=== PATIENT | female | born 1965 | race Caucasian/White ===

== ENCOUNTER 2017-04-06 11:00 | Emergency (ER) | payer OTHER ==
[2017-04-06] MEDS ORDERED: ATIVAN INJ 2 MG VIAL IVP ONE (11:07)
[2017-04-06] MEDS ORDERED: CEREBYX INJ ONE (11:18)
[2017-04-06] MEDS ORDERED: NS 1000 ML ONE (11:20)
[2017-04-06] MEDS ORDERED: CEREBYX INJ IVP ONE (11:21)
[2017-04-06 11:24] VITALS: BMI 35.5
--- NOTE | 2017-04-06 11:26 | DR.SEIZA ---
HPI - Time Seen Time seen: 11:00 - Complaints Chief Complaint Doctors Comments: Patient presented to the ED via EMS with complaint of seizure. She had a tonic clonic seizure duration of less than one minute. She received versed x2.Upon arrival patient was post-ictal. Patient had another seizure duration of three minutes, tonic/clonic , received 1mg lorazepam and seizure stopped. While awaiting for information for registering patient she had another seizure and she was started on cerebyx 1gm. Family member reports that seizures started 1-2 years ago, no regular physician, last seizure one month ago. PMH - PMH Past Medical History: Hypertension, Seizures Past Surgical History: No - Family History Family Medical History: Diabetes Mellitus, Heart Failure, Hypertension - Social History Do you use any recreational Drugs:: No ROS - Review of Systems Eyes: No Symptoms Reported ENTM: No Symptoms Reported Respiratoy: No Symptoms Reported, Other (post-ictal) Cardiovascular: No Symptoms Reported Gastrointestinal/Abdominal: No Symptoms Reported Genitourinary: No Symptoms Reported Neurological: Seizure Musculoskeletal: No Symptoms Reported Integumentary: No Symptoms Reported Hematologic/Lymphatic: No Symptoms Reported Endocrine: No Symptoms Reported Psychiatric: No Symptoms Reported All Other Systems: Reviewed and Negative PE - Vital Signs Vitals: Pulse Rate [Right Radial] 87 Pulse Rate 118 Respiratory Rate 26 Blood Pressure [Right Arm] 175/78 Blood Pressure 253/124 O2 Sat by Pulse Oximetry 96 - Head Head Exam: Normal Inspection - Eyes Eye exam: Normal Appearance - ENT ENT Exam: Normal Exam Mouth Exam: Normal Inspection - Neck Neck Exam: Normal Inspection, Full ROM - Chest Chest Inspection: Normal Inspection - Respiratory Respiratory Exam: Normal Lung Sounds Bilat Respiratory Exam: Bilateral Clear to Auscultation - Cardiovascular Cardiovascular Exam: Regular Rate, Normal Rhythm - Abdominal Exam Abdominal Exam: Normal Inspection Abdominal Tenderness: negative: RUQ, RLQ, LUQ, LLQ, Epigastrium, Suprapubic, Diffuse, Mild, Moderate, Severe, Other - Extremities Extremities Exam: Normal Inspection - Back Back Exam: Normal Inspection, Full ROM - Neurologic Neurological Exam: Alert, Oriented X3, CN II-XII Intact - Psychiatric Psychiatric Exam: Depressed - Skin Skin Exam: Warm, Dry, Intact ROR - Labs Reviewed Result Diagrams: 04/06/17 11:37 04/06/17 11:37 Laboratory: WBC 11.4 X10^3/uL (3.6-10.0) H 04/06/17 11:37 RBC 5.25 X10^6/uL (3.5-5.4) 04/06/17 11:37 Hgb 15.9 g/dL (12.0-16.0) 04/06/17 11:37 Hct 47.3 % (36.0-47.0) H 04/06/17 11:37 MCV 90.1 fL (80.0-100.0) 04/06/17 11:37 MCH 30.3 pg (27.0-34.0) 04/06/17 11:37 MCHC 33.6 g/dL (33.0-35.0) 04/06/17 11:37 RDW 13.8 % (11.6-16.5) 04/06/17 11:37 Plt Count 238 X10^3/uL (150.0-450.0) 04/06/17 11:37 MPV 8.8 fL (7.4-11.0) 04/06/17 11:37 Neut % 69.4 % (42.0-75.0) 04/06/17 11:37 Lymph % 23.5 % (21.0-51.0) 04/06/17 11:37 [place] % 3.8 % (0.0-13.0) 04/06/17 11:37 Eos % 2.6 % (0.9-2.9) 04/06/17 11:37 Baso % 0.7 % (0.2-1.0) 04/06/17 11:37 Neut # 7.9 x10^3/uL (2.2-4.8) H 04/06/17 11:37 Lymph # 2.7 X10^3/uL (1.3-2.9) 04/06/17 11:37 [place] # 0.4 x10^3/uL (0.3-0.8) 04/06/17 11:37 Eos # 0.3 x10^3/uL (0.0-0.2) H 04/06/17 11:37 Baso # 0.1 X10^3/uL (0.0-0.1) 04/06/17 11:37 Absolute Nucleated RBC 0.1 /100WBC 04/06/17 11:37 Sodium 142 mmol/L (136-145) 04/06/17 11:37 Corrected Sodium 144 mmol/L (136-145) 04/06/17 11:37 Potassium 3.9 mmol/L (3.5-5.1) 04/06/17 11:37 Chloride 104 mmol/L (98-107) 04/06/17 11:37 Carbon Dioxide 29.0 mmol/L (21-32) 04/06/17 11:37 BUN 11 mg/dL (7-18) 04/06/17 11:37 Creatinine 0.81 mg/dL (0.55-1.02) 04/06/17 11:37 Est GFR (MDRD) Af Amer > 60 (>60) 04/06/17 11:37 Est GFR (MDRD) Non-Af > 60 (>60) 04/06/17 11:37 Glucose 199 mg/dL (65-99) H 04/06/17 11:37 Calcium 8.1 mg/dL (8.5-10.1) L 04/06/17 11:37 Corrected Calcium TNP 04/06/17 11:37 Total Bilirubin 0.20 mg/dL (0.2-1.0) 04/06/17 11:37 AST 18 Units/L (15-37) 04/06/17 11:37 ALT 24 Units/L (12-78) 04/06/17 11:37 Alkaline Phosphatase 112 Units/L (46-116) 04/06/17 11:37 Total Protein 8.0 g/dL (6.4-8.2) 04/06/17 11:37 Albumin 3.8 g/dL (3.4-5.0) 04/06/17 11:37 Globulin 4.2 g/dL (2.5-4.5) 04/06/17 11:37 Albumin/Globulin Ratio 0.9 Ratio (1.1-2.1) L 04/06/17 11:37 Specimen Type Catherized urine 04/06/17 13:14 Urine Color Straw (YELLOW) 04/06/17 13:14 Urine Appearance Clear (CLEAR) 04/06/17 13:14 Urine pH 6.5 (5.0 - 8.0) 04/06/17 13:14 Ur Specific [place] 1.015 (1.000-1.030) 04/06/17 13:14 Urine Protein 3+ (NEGATIVE) 04/06/17 13:14 Urine Glucose (UA) 4+ (NEGATIVE) 04/06/17 13:14 Urine Ketones Negative (NEGATIVE) 04/06/17 13:14 Urine Occult Blood 2+ (NEGATIVE) 04/06/17 13:14 Urine Nitrite Negative (NEGATIVE) 04/06/17 13:14 Urine Bilirubin Negative (NEGATIVE) 04/06/17 13:14 Urine Urobilinogen Normal (NORMAL) 04/06/17 13:14 Ur Leukocyte Esterase Negative (NEGATIVE) 04/06/17 13:14 Urine RBC None seen /HPF (NEGATIVE) 04/06/17 13:14 Urine WBC None seen /HPF (NEGATIVE) 04/06/17 13:14 Ur Squamous Epith Cells Rare /HPF (NEGATIVE) 04/06/17 13:14 Amorphous Sediment Trace /HPF (NEGATIVE) 04/06/17 13:14 Urine Bacteria Negative /HPF (NEGATIVE) 04/06/17 13:14 Ur Culture Indicated? No/not indicated 04/06/17 13:14 Phenytoin 10.8 ug/mL (10-20) 04/06/17 15:57 - XRAY XRAY Interpreted by: Radiologist (Brain Ct: No acute abnormality) - Diagnosis Discharge Problem: Seizure disorder - Discharge Plan Condition: Stable - Follow ups/Referrals Follow ups/Referrals: [facility],None [Primary Care Provider] - 3 days - Instructions
[2017-04-06 11:50] LABS: BASOPHILS # (AUTO) 0.1 X10^3/uL (0.0-0.1); BASOPHILS % (AUTO) 0.7 % (0.2-1.0); EOSINOPHILS # (AUTO) 0.3 x10^3/uL (0.0-0.2); EOSINOPHILS % (AUTO) 2.6 % (0.9-2.9); HEMATOCRIT 47.3 % (36.0-47.0); HEMOGLOBIN 15.9 g/dL (12.0-16.0); LYMPHOCYTES # (AUTO) 2.7 X10^3/uL (1.3-2.9); LYMPHOCYTES % (AUTO) 23.5 % (21.0-51.0); MEAN CORPUSCULAR HEMOGLOBIN 30.3 pg (27.0-34.0); MEAN CORPUSCULAR HGB CONC 33.6 g/dL (33.0-35.0); MEAN CORPUSCULAR VOLUME 90.1 fL (80.0-100.0); MEAN PLATELET VOLUME 8.8 fL (7.4-11.0); MONOCYTES # (AUTO) 0.4 x10^3/uL (0.3-0.8); MONOCYTES % (AUTO) 3.8 % (0.0-13.0); NEUTROPHILS # (AUTO) 7.9 x10^3/uL (2.2-4.8); NEUTROPHILS % (AUTO) 69.4 % (42.0-75.0); PLATELET COUNT 238 X10^3/uL (150.0-450.0); RED BLOOD COUNT 5.25 X10^6/uL (3.5-5.4); RED CELL DISTRIBUTION WIDTH 13.8 % (11.6-16.5); WHITE BLOOD COUNT 11.4 X10^3/uL (3.6-10.0)
[2017-04-06 12:05] LABS: ALANINE AMINOTRANSFERASE 24 Units/L (12-78); ALBUMIN 3.8 g/dL (3.4-5.0); ALKALINE PHOSPHATASE 112 Units/L (46-116); ASPARTATE AMINO TRANSFERASE 18 Units/L (15-37); BLOOD UREA NITROGEN 11 mg/dL (7-18); CALCIUM 8.1 mg/dL (8.5-10.1); CHLORIDE 104 mmol/L (98-107); COR NA(FOR HYPERGLY) 144 mmol/L (136-145); CREATININE 0.81 mg/dL (0.55-1.02); SODIUM 142 mmol/L (136-145); eGFR BLACK RACES > 60 (>60); eGFR NON BLACK RACES > 60 (>60)
--- NOTE | 2017-04-06 13:13 | CT ---
HISTORY: Seizures Study: CT brain without contrast Comparison: February 11, 2015 Technique: Multiple axial images of the brain were obtained from the skull base to the vertex without administra tion of IV contrast. Sagittal and coronal reformations were provided. Findings: No acute intraparenchymal hemorrhage or mass can be identified. No extra-axial fluid collections are seen. No alteration in the attenuation of the brain parenchyma can be identified to suggest acute o r subacute ischemic change. The ventricular system is symmetric and nondilated. The extracranial st ructures are grossly unremarkable. IMPRESSION: 1. No acute intracranial process can be identified. Reported By:
[2017-04-06 13:29] LABS: BILIRUBIN,URINE NEGATIVE (NEGATIVE); BLOOD/HEMOGLOBIN,URINE 2+ (NEGATIVE); GLUCOSE, URINE 4+ (NEGATIVE); KETONES,URINE NEGATIVE (NEGATIVE); LEUKOCYTE ESTERASE ,URINE NEGATIVE (NEGATIVE); NITRITES,URINE NEGATIVE (NEGATIVE); PH,URINE 6.5 (5.0 - 8.0); PROTEIN,URINE 3+ (NEGATIVE); UROBILINOGEN,URINE NORMAL (NORMAL)
[2017-04-06 13:36] LABS: APPEARANCE,URINE CLEAR (CLEAR); COLOR,URINE STRAW (YELLOW); RBC,URINE NONE SEEN /HPF (NEGATIVE); SQUAMOUS EPITHELIAL CELL,UR RARE /HPF (NEGATIVE)
[2017-04-06 13:37] LABS: AMORPHOUS SEDIMENT,UR TRACE /HPF (NEGATIVE); BACTERIA,URINE NEGATIVE /HPF (NEGATIVE)
[2017-04-06] MEDS ORDERED: NORMODYNE INJ 20 MG VIAL IVP ONE ×2 (14:06→17:30)
[2017-04-06] MEDS ORDERED: NORMODYNE INJ 20 MG VIAL ONE (14:09)
[2017-04-06 16:47] VITALS: BP 175/78
== END 2017-04-06 18:15 | disposition home or self-care (01) ==
LOC: ER 11:00
DX: G43.909 Migraine, unspecified, not intractable, without status migrainosus (principal)
CPT/HCPCS: 36415; 51702; 70450; 80053; 80185; 81001; 85025; 93041; 96365; 96374; 96375; 99283; S0078; J2060; J3490